=== PATIENT | female | born 1995 | race Caucasian/White ===

== ENCOUNTER 2016-09-08 16:22 | Emergency (ER) | payer OTHER ==
[2016-09-08 17:53] VITALS: BP 103/64
--- NOTE | 2016-09-08 19:33 | UC ---
Back Pain HPI - HPI Summary HPI Summary: The patient comes in today for: 1. Lower back pain: Onset: 2 days ago, with it being worse today. Palliative/provocative: Movement makes it worse. Any position "it hurts." Quality: Sharp and ache. Region: Middle of the lower back. Severity: 9/10 Time: Constant. Associated symptoms: She also complains of bilateral pain behind the eyes. Fevers: None. Dizziness: Spinning sensation (this AM) with nausea. This lasted all morning. But, it started again on her ride to see us. She complains of epistaxis the day of her flu vaccine (3 days ago). No bleeding since. Previous back problems: None. Home treatment: Ibuprofen 400 mg with one dose last night and one dose this AM. Dysuria: None Hematuria: None. Injury: None. Flu vaccine: 3 days ago. Numbness or weakness; None. Rhinitis: present, clear Cough: dry. upper tooth pain: None. * - History of Current Complaint Chief Complaint: UCGeneralIllness Stated Complaint: BACK PAIN, VOMITING Time Seen by Provider: 09/08/16 19:25 Hx Last Menstrual Period: 08/24/16 ?: No - Allergies/Home Medications Allergies/Adverse Reactions: Allergies Allergy/AdvReac Type Severity Reaction Status Date / Time No Known Allergies Allergy Verified 05/04/15 21:53 Home Medications: Home Medications Ibuprofen [Advil] 400 mg PO 09/08/16 [History] PMH/Surg Hx/FS Hx/Imm Hx Previously Healthy: No - "behavior issue" where she is "very hyper." Endocrine History Of: Denies: Diabetes, Thyroid Disease, Hyperthyroidism, Hypothyroidism, Dyslipidemia Cardiovascular History Of: Denies: Cardiac Disorders, Hypertension, Pacemaker/ICD, Myocardial Infarction , Congestive Heart Failure, Atrial Fibrillation, Deep Vein Thrombosis, Bleeding Disorders Respiratory History Of: Denies: COPD, Asthma, Bronchitis, Pneumonia, Pulmonary Embolism GI/ History Of: Denies: Gastroesophageal Reflux, Ulcer, Gastrointestinal Bleed, Gall Bladder Disease, Kidney Stones, Diverticulitis, Renal Disease, Urosepsis Neurological History Of: Denies: TIA, CVA, Dementia, Seizures, Migraine Psychological History Of: Denies: Anxiety, Depression, Bipolar Disorder, Schizophrenia, Post Traumatic Stress Disorder Cancer History Of: Denies: Lung Cancer, Colorectal Cancer, Breast Cancer, Prostate Cancer, Cervical Cancer Other History Of: Negative For: HIV, Hepatitis B, Hepatitis C, Anticoagulant Therapy - Surgical History Surgical History: Yes Surgery Procedure, Year, and Place: APPENDECTOMY 2009 - Family History Known Family History: Negative: Cardiac Disease, Hypertension, Diabetes - Social History Occupation: Student Alcohol Use: None Substance Use Type: None Smoking Status (MU): Never Smoked Tobacco Have You Smoked in the Last Year: No - Immunization History Most Recent Influenza Vaccination: 2012 Vaccination Up to Date: Yes Review of Systems Constitutional: Negative Skin: Negative Eyes: Negative ENT: Negative Respiratory: Cough - Dry, "hearty deep cough." Cardiovascular: Negative Gastrointestinal: Negative, Vomiting - She vomited two times today. The last one was about 3 hours ago. Genitourinary: Negative Musculoskeletal: Arthralgia, Myalgia Neurological: Headache All Other Systems Reviewed And Are Negative: Yes Physical Exam Triage Information Reviewed: Yes Appearance: Well-Appearing, No Pain Distress, Well-Nourished Vital Signs: Initial Vital Signs Temp 98.6 F 09/08/16 17:49 Pulse 111 09/08/16 17:49 Resp 18 09/08/16 17:49 BP 103/64 09/08/16 17:49 Pulse Ox 100 09/08/16 17:49 Vital Signs Reviewed: Yes Eyes: Positive: Conjunctiva Clear. Negative: Discharge ENT: Positive: Hearing grossly normal, Other: - She does not have tenderness of the frontal or maxillary sinuses, but positive pain with pressure to her ethmoid sinuses.. Negative: Pharyngeal erythema, Nasal congestion, Nasal drainage, TM bulging, TM dull, TM red, Tonsillar swelling, Tonsillar exudate Dental: Negative: Gross Decay/Caries @, Dental Fracture @ Neck: Positive: Supple, Nontender, No Lymphadenopathy. Negative: Nuchal Rigidity Respiratory: Positive: Chest non-tender, Lungs clear, No respiratory distress, No accessory muscle use. Negative: Crackles, Wheezing Cardiovascular: Positive: RRR, No Murmur Abdomen Description: Positive: No Organomegaly, Soft. Negative: Nontender - She has tenderness without rebound or percussion tenderness of the left lower quadrant., Distended, Guarding Musculoskeletal: Positive: Strength Intact, ROM Intact, No Edema, Other: - She has some tenderness to palpation of the lumbar spinous processes and the lower lumbar right and left paraspinous processes. NO CVA tenderness. Neurological: Positive: Alert, Muscle Tone Normal Psychological: Positive: Age Appropriate Behavior, Consolable Skin: Negative: rashes, breakdown Back Pain Course/Dx - Course Course Of Treatment: The patient was told that I don't know for sure what is causing her abdominal. pain. The patient was also told that there are many causes for abdominal pain--. some which are benign and some which are life- threatening. Furthermore, it was. mentioned that the life-threatening causes of abdominal pain can present with. minimal, atypical, or even no symptoms. Becasue of these facts and the fact. that we don't have here all the testing methods commonly used to assess abdominal. pain, and their timely results, my recommendation is for the patient to [facility] [place] [place]. However, she did not want to do this. She wants to go with an antibiotic and naproxen for. her headache and backache. - Differential Dx/Diagnosis Provider Diagnoses: Left lower quadrant abdominal pain. Headache. Sinusitis. Lower back ache. Vertigo Discharge - Discharge Plan Condition: Stable Disposition: HOME Patient Education Materials: Sinusitis (ED), Abdominal Pain (ED), Vertigo (ED) , Low Back Strain (ED) Referrals: Destiney Miramontes NP [Primary Care Provider] - As Soon As Possible (If you are not going to the ER, please reconsider if you get worse. Please see your primary care provider as soon as you can.)
[2016-09-08] MEDS ORDERED: Amoxicillin/Clavulanate TAB* 875 MG PO ONE (19:55)
[2016-09-08] MEDS ORDERED: Naproxen TAB* 250 MG PO ONE (19:55)
== END 2016-09-08 20:15 | disposition left against medical advice (07) ==
LOC: UCEAST 16:22
DX: R10.32 Left lower quadrant pain (principal); M54.5 Low back pain; J32.9 Chronic sinusitis, unspecified; R42 Dizziness and giddiness
CPT/HCPCS: 99212; A9270-GY; G0463

== ENCOUNTER 2017-04-23 21:14 | Emergency (ER) | payer OTHER ==
[2017-04-23 22:03] VITALS: BP 107/73
--- NOTE | 2017-04-23 23:12 | UC ---
Eye Complaint HPI - HPI Summary HPI Summary: RIGHT SUPERIOR EYELID, BUMP, HAVING DISCHARGE, FOR TWO DAYS. SINUS PRESSURE FOR A WEEK. USES CONTACT LENSES. NO FEVER. NO TRAUMA. NO CHANGES IN VISION. - History of Current Complaint Chief Complaint: UCEye Stated Complaint: BUMP UNDER EYELID Time Seen by Provider: 04/23/17 22:16 Hx Obtained From: Patient, Family/[employer] Hx Last Menstrual Period: April 15, 2017 Onset/Duration: Gradual Onset, Lasting Hours, Lasting Days Severity Initially: Moderate Severity Currently: Moderate Pain Intensity: 4 Pain Scale Used: 0-10 Numeric Location of Injury: Eye Lid (upper) Aggravating Factor(s): Nothing Alleviating Factor(s): Nothing Associated Signs And Symptoms: Positive: Drainage (Purulent), Swelling - Risk Factors Penetrating Injury Risk Factor: Negative Acute Glaucoma Risk Factors: Negative Optic Artery Occlusion Risk Factors: Negative - Allergies/Home Medications Allergies/Adverse Reactions: Allergies Allergy/AdvReac Type Severity Reaction Status Date / Time No Known Allergies Allergy Verified 05/04/15 21:53 PMH/Surg Hx/FS Hx/Imm Hx Previously Healthy: Yes Other History Of: Negative For: HIV, Hepatitis B, Hepatitis C, Anticoagulant Therapy - Surgical History Surgical History: Yes Surgery Procedure, Year, and Place: APPENDECTOMY 2009 - Family History Known Family History: Negative: Cardiac Disease, Hypertension, Diabetes - Social History Occupation: Student Lives: With Family Alcohol Use: None Substance Use Type: None Smoking Status (MU): Never Smoked Tobacco Have You Smoked in the Last Year: No - Immunization History Most Recent Influenza Vaccination: 2012 Vaccination Up to Date: Yes Review of Systems Constitutional: Negative Skin: Negative Eyes: Drainage, Other - SUPERIOR LID RIGHT EYE STYE ENT: Nasal Discharge, Sinus Congestion, Sinus Pain/Tenderness Respiratory: Negative Cardiovascular: Negative Gastrointestinal: Negative Genitourinary: Negative Motor: Negative Neurovascular: Negative Musculoskeletal: Negative Neurological: Negative Psychological: Negative Is Patient Immunocompromised?: No All Other Systems Reviewed And Are Negative: Yes Physical Exam Triage Information Reviewed: Yes Appearance: Well-Appearing, No Pain Distress, Well-Nourished Vital Signs: Initial Vital Signs Temp 97.7 F 04/23/17 21:52 Pulse 93 04/23/17 21:52 Resp 16 04/23/17 21:52 BP 107/73 04/23/17 21:52 Pulse Ox 100 04/23/17 21:52 Vital Signs Reviewed: Yes Eyes: Positive: Discharge, Other: - RIGHT SUPERIOR EYELID STYE ENT: Positive: Hearing grossly normal, Nasal congestion, TM bulging, TM dull Dental Exam: Normal Neck exam: Normal Neck: Positive: Supple, Nontender, No Lymphadenopathy Respiratory Exam: Normal Respiratory: Positive: Chest non-tender, Lungs clear, Normal breath sounds, No respiratory distress, No accessory muscle use Cardiovascular Exam: Normal Cardiovascular: Positive: RRR, No Murmur, Pulses Normal, Brisk Capillary Refill Abdominal Exam: Normal Musculoskeletal Exam: Normal Musculoskeletal: Positive: Strength Intact, ROM Intact Neurological Exam: Normal Psychological Exam: Normal Skin Exam: Normal Eye Complaint Course/Dx - Differential Dx/Diagnosis Differential Diagnosis/HQI/PQRI: Conjunctivitis Provider Diagnoses: RIGHT SUPERIOR EYELID STYE; SINUSITIS Discharge - Discharge Plan Condition: Stable Disposition: HOME Prescriptions: Amoxicillin/Clavulanate TAB* [Augmentin TAB 875*] 875 mg PO BID #20 tab Tobramycin 0.3% OPHTH.HANNAH* 1 drop RIGHT EYE Q4H #1 btl Patient Education Materials: Sinusitis (ED), Stye (ED), Conjunctivitis (ED) Referrals: Destiney Miramontes NP [Primary Care Provider] -
== END 2017-04-23 22:40 | disposition home or self-care (01) ==
LOC: UCEAST 21:14
DX: H00.011 Hordeolum externum right upper eyelid (principal); J32.9 Chronic sinusitis, unspecified
CPT/HCPCS: 99212; G0463

== ENCOUNTER 2017-09-30 20:11 | Emergency (ER) | payer OTHER ==
--- OUTSIDE RECORDS SUMMARY | 2017-09-30 20:22 | XMS REPORT ---
:1995 External Reference #:[id number] Author Organization [facility] Address [address] [place] [address] Phone [phone] Care Team Providers Name Role Phone Marge Burr M.D. Care Team Information Sap Basis Unavailable Marge Burr M.D. Primary Care Physician Unavailable Payers Type Date Identification Numbers Payment Provider Subscriber Medicaid Policy Number: [id number] [facility] Rohan Bacon PayID: [id number] [address] [address] [place] [address] Problems Date Description Provider Status Onset: 08/07/2017 Bipolar disorder Marge Burr M.D. 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 day Biotin Maximum Active Capsules 5000mcg qd Unknown Strength 000 Poly Hx 0.25mg 100cc Take 1 cc Jason S. Fluoride 997 - Every Day Nile, At Bedtime M.D. 017 Risperidone Hx Tablets 2mg 1 po bid F31.9 Unknown 000 - 018 Immunizations CPT Code Status Date Vaccine Lot # [id number] Given 02/11/1997 Hepatitis B Immunization, -20 Years 00271 Given 1996 Immunization Unspecified 62092 Given 1996 Hemopholus Influenza B Immunization 90770 Given 1996 DTP Immunization Vital Signs Date Vital Result Comment 09/12/2017 BP Systolic 112 mmHg BP Diastolic 72 mmHg Heart Rate 80 /min Body Temperature 97.7 F Respiratory Rate 18 /min Height 71.5 inches 5'11.50" Weight 198.00 lb BMI (Body Mass Index) 27.2 kg/m2 08/07/2017 BP Systolic 100 mmHg BP Diastolic 60 mmHg Heart Rate 80 /min Body Temperature 97.7 F Height 71.5 inches 5'11.50" Weight 214.00 lb BMI (Body Mass Index) 29.4 kg/m2 03/13/2017 BP Systolic 100 mmHg BP Diastolic 60 mmHg Heart Rate 84 /min Body Temperature 98.5 F Respiratory Rate 16 /min Height 71.5 inches 5'11.50" Weight 206.00 lb BMI (Body Mass Index) 28.3 kg/m2 06/14/1997 Body Temperature 96.7 F Height 30.50 inches 2'6.50" Weight 19.00 lb Weight Percentile 14th Results Test Date Test Result H/L Range Note Laboratory test finding 08/07/2017 Hemoglobin A1c (Fma) 5.0 % 4.1-5.7 Complete Blood Count 08/07/2017 WBC 5.6 x10^3/UL 3.6-9.6 RBC 4.59 x10^6/UL 3.90-5.70 HGB 13.7 g/dL 12.1-17.2 HCT 41 % 36-50 MCV 88.0 fL 82.2-97.4 MCH 29.8 pg 27.6-33.3 MCHC 33.8 g/dL 33.0-35.5 RDW 13.8 % High 11.6-13.7 PLT 320 x10^3/UL 150-400 MPV 7.9 fL 7.4-10.4 Gran # 3.4 x10^3/UL 1.5-7.2 Lymph# 1.9 x10^3/UL 0.7-4.9 Valencia# 0.3 x10^3/UL 0.1-0.9 Gran % 59.9 % 42.2-75.2 Lymph % 34.5 % 20.5-51.1 Valencia% 5.6 % 1.7-9.3 Comprehensive Metabolic Prof 08/07/2017 Sodium 138 mEq/L 134-149 Potassium 3.9 mEq/L 3.6-5.5 Chloride 103 mEq/L 94-112 Carbon Dioxide 26 mEq/L 21-32 Glucose 101 mg/dL 70-105 BUN 6 mg/dL 6-26 Creatinine 0.6 mg/dL 0.6-1.4 BUN/Creat Ratio 10.0 CALC 8.0-36.0 Calcium 9.1 mg/dL 8.6-10.2 Total Protein 6.6 g/dL 6.4-8.3 Albumin 4.6 g/dL 3.8-5.5 Globulin 2.0 g/dL 2.0-4.8 A/G Ratio 2.3 CALC 0.6-2.3 Alk. Phosphatase 131 U/L High 30-110 1 Alt (SGPT) 39 U/L High 7-35 2 Ast (Sgot) 20 U/L 5-34 Total Bilirubin 0.3 mg/dL 0.2-1.3 GFR Non- >60 ml/min/1.73m^ >=60 GFR >60 ml/min/1.73m^ >=60 Lipid Profile 08/07/2017 Cholesterol 156 mg/dL 120-200 Triglycerides 86 mg/dL 30-200 HDL Cholesterol 54 mg/dL 30-85 LDL (Calculated) 85 CALC 0-129 VLDL Cholesterol 17 mg/dL 0-50 HDL Risk Factor 2.9 CALC 0.0-4.4 Laboratory test finding 08/07/2017 TSH 5.06 mIU/L 0.50-6.00 1 RESULTS VERIFIED BY REPEAT ANALYSIS 2 RESULTS VERIFIED BY REPEAT ANALYSIS Procedures Description No Information Encounters Type Date Location Provider CPT E/M Dx Office Visit 08/07/2017 10:20a [facility] Marge Burr M.D. 82764 F31.9 Z79.899 Office Visit 03/13/2017 6:00p [place] [address] K60.2 Plan of Care 09/12/2017 - Sabina Peralta, [id number] Plantar wartComments:- You have been diagnosed with warts on your Right thumb and ball of your left foot- As we discussed, an [id number] treatment option would be beneficial to you, salicylic acid to remove the wartsat home, applying to the effective area before bed as described in the directions and then covering with duct tape while you sleep, removing in the morning. - Please contact me if this is ineffectual and we would refer you to a it consulting director or connie scratcher at that time.
[2017-09-30 20:23] VITALS: BP 124/76
--- NOTE | 2017-09-30 20:59 | UC ---
Abdominal Pain Female HPI - HPI Summary HPI Summary: 22 yo WF p/w pain in right nacho and upper umbilical area 2 hrs after eating [place] food at the mall associated with chillsx1 tonight. 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 Hx Last Menstrual Period: <1 WEEK AGO ?: No Onset/Duration: Lasting Hours, Still Present Severity Initially: Moderate Severity Currently: Moderate Pain Intensity: 7 Allergies/Adverse Reactions: Allergies Allergy/AdvReac Type Severity Reaction Status Date / Time No Known Allergies Allergy Verified 09/30/17 20:23 PMH/Surg Hx/FS Hx/Imm Hx Previously Healthy: Yes Other History Of: Negative For: HIV, Hepatitis B, Hepatitis C, Anticoagulant Therapy - Surgical History Surgical History: Yes Surgery Procedure, Year, and Place: APPENDECTOMY 2009 - Family History Known Family History: Negative: Cardiac Disease, Hypertension, Diabetes - Social History Alcohol Use: None Substance Use Type: None Smoking Status (MU): Never Smoked Tobacco Have You Smoked in the Last Year: No - Immunization History Most Recent Influenza Vaccination: 2012 Vaccination Up to Date: Yes Review of Systems Constitutional: Chills Skin: Negative Eyes: Negative ENT: Negative Respiratory: Negative Cardiovascular: Negative Gastrointestinal: Abdominal Pain, Diarrhea Genitourinary: Negative Motor: Negative Neurovascular: Negative Musculoskeletal: Negative Neurological: Negative Psychological: Negative All Other Systems Reviewed And Are Negative: Yes Physical Exam Triage Information Reviewed: Yes Vital Signs: Initial Vital Signs Temp 36.3 C 09/30/17 20:20 Pulse 110 09/30/17 20:20 Resp 16 09/30/17 20:20 BP 124/76 09/30/17 20:20 Pulse Ox 96 09/30/17 20:20 Eye Exam: Normal ENT Exam: Normal Dental Exam: Normal Neck exam: Normal Neck: Positive: 1 Respiratory Exam: Normal Cardiovascular Exam: Normal Abdomen Description: Positive: Soft, Distended, Other: - dull AND tympanitic over the left periumbilical region and throughout upper abdomen, BS WNL Bowel Sounds: Positive: Present Musculoskeletal Exam: Normal Neurological Exam: Normal Psychological Exam: Normal Skin Exam: Normal Abd Pain Female Course/Dx - Course Course Of Treatment: XR of abd flat and upright reveals fecal stasis and impaction throughout colon with associated bowel gas patterns in area of abdominal tenderness in right upper periumbilical region. Upon further questioning pt does c/o constipation and this is a chronic problem. Having eaten nicaraguan food tonight - carbs- is not helping the situation. Advised PO laxative OTC if sx continue to tomorrow - Differential Dx/Diagnosis Provider Diagnoses: Fecal stasis. Obstipation. indigestion Discharge - Discharge Plan Condition: Stable Disposition: HOME Patient Education Materials: Indigestion (ED), Gas and Bloating (ED) Referrals: Marge Burr MD [Primary Care Provider] - Additional Instructions: If stomach pains do not improve with bowel movement tomorrow, purchase laxatives over the counter to facilitate bowel movement and ease gas pains
--- NOTE | 2017-09-30 21:22 | RAD ---
INDICATION: Periumbilical pain COMPARISON: Lumbar spine September 13, 2011 TECHNIQUE: Erect and supine views of the abdomen are submitted. FINDINGS: Bones: There are no acute bony findings. There is an S type deformity Soft tissues: The soft tissues appear normal. The psoas margins are sharp. Bowel gas pattern: Normal Calcifications: There are no abnormal calcifications. Other: None IMPRESSION: NO ACUTE DIAGNOSTIC FINDINGS.
== END 2017-09-30 21:40 | disposition home or self-care (01) ==
LOC: UCEAST 20:14
DX: K59.00 Constipation, unspecified (principal); K30 Functional dyspepsia
CPT/HCPCS: 74019; 99211; G0463

== ENCOUNTER 2018-08-04 12:20 | Emergency (ER) | payer OTHER ==
--- OUTSIDE RECORDS SUMMARY | 2018-08-04 12:35 | XMS REPORT ---
:1995 External Reference #:[id number] Author Organization [facility] Address [address] [place] [address] Phone [phone] Care Team Providers Name Role Phone Marge Burr M.D. 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 Primary Care Physician Unavailable Payers Type Date Identification Numbers Payment Provider Subscriber Medicaid Policy Number: [id number] [facility] Rohan Bacon PayID: [id number] [address] [address] [place] [address] Problems Date Description Provider Status Onset: 08/07/2017 Bipolar disorder Marge Burr M.D. 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 night Biotin Maximum Active Capsules 5000mcg qd Unknown Strength 000 Risperidone Active Tablets 2mg 90tabs take one F31.9 Marge 000 tablet by Clinton, mouth M.D. every morning Risperidone Hx Tablets 3mg 60tabs 1 tab by F31.9 Marge 018 - mouth Clinton, twice a M.D. 018 day Poly Hx 0.25mg 100cc Take 1 cc Jason S. Fluoride 997 - Every Day Jovanni, AT Bedtime M.D. 017 Risperidone 0 Hx Tablets 2mg 1 po bid F31.Harshad Unknown 000 - 018 Immunizations CPT Code Status Date Vaccine Lot # [id number] Given 02/11/1997 Hepatitis B Immunization, -20 Years [address]1644 Given 1996 Immunization Unspecified 94729 Given 1996 Hemopholus Influenza B Immunization 91737 Given 1996 DTP Immunization Vital Signs Date Vital Result Comment 07/22/2018 BP Systolic 120 mmHg BP Diastolic 62 mmHg Heart Rate 76 /min Body Temperature 97.7 F Respiratory Rate 16 /min Height 71.5 inches 5'11.50" Weight 226.00 lb BMI (Body Mass Index) 31.1 kg/m2 06/11/2018 BP Systolic 110 mmHg BP Diastolic 60 mmHg Heart Rate 80 /min Body Temperature 98.8 F Respiratory Rate 16 /min Height 71.5 inches 5'11.50" Weight 222.00 lb BMI (Body Mass Index) 30.5 kg/m2 11/20/2017 BP Systolic 118 mmHg BP Diastolic 80 mmHg Heart Rate 92 /min Body Temperature 97.7 F Height 71.5 inches 5'11.50" Weight 222.00 lb BMI (Body Mass Index) 30.5 kg/m2 10/11/2017 BP Systolic 106 mmHg BP Diastolic 70 mmHg Heart Rate 90 /min Body Temperature 97.7 F Respiratory Rate 16 /min Height 71.5 inches 5'11.50" Weight 217.00 lb BMI (Body Mass Index) 29.8 kg/m2 09/12/2017 BP Systolic 112 mmHg BP Diastolic [...] Result H/L Range Note Laboratory test finding 07/22/2018 TSH <pending> 0.5-5.0 Free T4 <pending> 0.75-1.54 Laboratory test finding 07/22/2018 Hemoglobin A1c (Fma) <pending> % 4.1- 5.7 Laboratory test finding 08/07/2017 Hemoglobin A1c (Fma) [...] 3.4 x10^3/UL 1.5-7.2 Lymph# 1.9 x10^3/UL 0.7-4.9 Mccormick# 0.3 x10^3/UL 0.1-0.9 Gran % 59.9 % 42.2-75.2 Lymph % 34.5 % 20.5-51.1 Mccormick% 5.6 % 1.7-9.3 Comprehensive Metabolic Prof 08/07/2017 [...] Location Provider CPT E/M Dx Office Visit 06/11/2018 10:20a [facility] Marge Burr M.D. 50826 F31.9 E66.9 Office Visit 11/20/2017 8:40a [facility] Office Marge Burr M.D. 75045 F31.9 E66.9 B07.0 Office Visit 10/11/2017 4:30p [place] [address] F31.9 Office Visit 09/12/2017 1:00p [place] [address] B07.0 Office Visit 08/07/2017 10:20a [facility] Marge Burr M.D. 13414 F31.9 Z79.899 Office Visit 03/13/2017 6:00p [place] [address] K60.2 Plan of Care 07/22/2018 - Marge Burr M.D.F31.9 Bipolar disorder, unspecifiedComments: improved on sertraline, discussed exercise and maintaining healthy weight call kevin if symptoms worsenFollow up:3 -4 moE66.9 Obesity, unspecifiedComments: Counseled on heart healthy diet such as Mediterranean diet. Eat protein and vegetables first then carbohydrates last. Get at least 150 minutes of moderate aerobic activity or 75 minutes of vigorous aerobic activity a week, or a combination of moderate and vigorous activity. General goal of 30 minutes of physical activity a day.AllComments:~B_~U_Medication Management~b_~u_ Patient Understands medications she's taking? Yes No Are there Barriers to Adherence? Yes No Has the patient been asked about herbal supplements and therapies, and OTC meds? Yes No
[2018-08-04 13:21] VITALS: BP 105/65
--- NOTE | 2018-08-04 15:00 | UC ---
Ear Complaint HPI - HPI Summary HPI Summary: Patient is a 23-year-old female presenting to the ED with pain to the right upper jaw and ear. She states last evening she felt pain, redness and warmth into the right ear canal which has radiated to the R upper jaw. She endorses a 9/10 pain, constant throbbing in the right upper jaw with swelling. She states after taking 800 mg ibuprofen, the swelling reduced, however the pain remains. She denies any fevers, sweats, chills. She states it is difficult for her to open her jaw. Upon attempting to open the jaw, the bottom jaw shifts over to the left with a significant amount of pain. She also is hearing a "click." Denies any abnormal drainage from the ear, postnasal drip, dysphagia or odynophagia. - History of Current Complaint Chief Complaint: UCEar Stated Complaint: RIGHT EAR COMPLAINT Time Seen by Provider: 08/04/18 13:25 Hx Obtained From: Patient Hx Last Menstrual Period: 07/28/18 ?: No Onset/Duration: Sudden Onset Severity Initially: Mild Severity Currently: Mild Pain Intensity: 8 Pain Scale Used: 0-10 Numeric - Allergies/Home Medications Allergies/Adverse Reactions: Allergies Allergy/AdvReac Type Severity Reaction Status Date / Time No Known Allergies Allergy Verified 08/04/18 13:21 Home Medications: Home Medications Sertraline* [Zoloft*] 25 mg PO DAILY 08/04/18 [History Confirmed 08/04/18] PMH/Surg Hx/FS Hx/Imm Hx Previously Healthy: Yes Other History Of: Negative For: HIV, Hepatitis B, Hepatitis C, Anticoagulant Therapy - Surgical History Surgical History: Yes Surgery Procedure, Year, and Place: APPENDECTOMY 2009 - Family History Known Family History: Negative: Cardiac Disease, Hypertension, Diabetes - Social History Occupation: Employed Part-time Lives: With Family Alcohol Use: None Substance Use Type: None Smoking Status (MU): Never Smoked Tobacco Have You Smoked in the Last Year: No - Immunization History Most Recent Influenza Vaccination: 2012 Vaccination Up to Date: Yes Review of Systems All Other Systems Reviewed And Are Negative: Yes Constitutional: Positive: Negative Skin: Positive: Negative Eyes: Positive: Negative ENT: Positive: Other - ear pain/TMJ pain Respiratory: Positive: Negative Cardiovascular: Positive: Negative Motor: Positive: Negative Neurovascular: Positive: Negative Neurological: Positive: Negative Psychological: Positive: Negative Is Patient Immunocompromised?: No Physical Exam Triage Information Reviewed: Yes Appearance: Well-Appearing, Well-Nourished Vital Signs: Initial Vital Signs Temp 98.7 F 08/04/18 13:17 Pulse 111 08/04/18 13:17 Resp 18 08/04/18 13:17 BP 105/65 08/04/18 13:17 Pulse Ox 99 08/04/18 13:17 Vital Signs Reviewed: Yes Eye Exam: Normal Eyes: Positive: Conjunctiva Clear ENT: Positive: Other - right upper ear in the gisselle Dental: Positive: Other: - R TMJ tenderness Neck exam: Normal Neck: Positive: Supple, No Lymphadenopathy Respiratory Exam: Normal Respiratory: Positive: Chest non-tender, Lungs clear Musculoskeletal Exam: Normal Musculoskeletal: Positive: Strength Intact Neurological Exam: Normal Neurological: Positive: Alert Skin Exam: Normal Ear Complaint Course/Dx - Course Course Of Treatment: Physical examination, patients TMJ is prominent to the R side and upon opening jaw, the mandible shifts to the L significantly. There is erythema dn warmth to the R upper ear. Xray obtained of the mandible which shows no dislocation. The TMJ does appear to be intact with jaw in closed position. As patient also has develop redness and erythema to the inner ear ( gisselle of auricle/ cymba) with a palpable nodule. She states this area has somewhat dissipated and now the R upper jaw over TMJ is painful. Possible bacterial infection to the R ear has drained into the parotid area and causing swelling. She is given augmentin for infection. She will follow up with PCP for worsening changing. - Differential Dx/Diagnosis Differential Diagnosis/HQI/PQRI: TMJ Syndrome Provider Diagnosis: Mandibular swelling, Cellulitis of gisselle of right ear Discharge - Sign-Out/Discharge Documenting (check all that apply): Patient Departure All imaging exams completed and their final reports reviewed: Yes - Discharge Plan Condition: Stable Disposition: HOME Prescriptions: Amoxicillin/Clavulanate TAB* [Augmentin TAB 875*] 875 mg PO BID #10 tab Referrals: Marge Burr MD [Primary Care Provider] - Additional Instructions: Ibuprofen 600mg three times daily x 3-4 days for swelling Ice to the area may help Soft foods and do not attempt to open jaw wide Augmentin twice daily x 5 days, start now and next dose is before bed. Follow up with your PCP if symptoms persist - Billing Disposition and Condition Condition: STABLE Disposition: Home
== END 2018-08-04 15:05 | disposition home or self-care (01) ==
LOC: UCEAST 12:20
DX: R22.0 Localized swelling, mass and lump, head (principal); H60.11 Cellulitis of right external ear
CPT/HCPCS: 70110; 99212; G0463

== ENCOUNTER 2018-10-19 19:32 | Emergency (ER) | payer OTHER ==
[2018-10-19 19:39] VITALS: BP 121/73
--- NOTE | 2018-10-19 20:15 | UC ---
- HPI Summary HPI Summary: 23 y/o female presents to the urgent care c/o RT painful breast since last night C/O LUMP IN RIGHT BREAST; THIS WAS A LITTLE PAINFUL LAST NIGHT BUT MORE PAINFUL TODAY. - History of Current Complaint Hx Obtained From: Patient - Allergy/Home Medications Allergies/Adverse Reactions: Allergies Allergy/AdvReac Type Severity Reaction Status Date / Time No Known Allergies Allergy Verified 10/19/18 19:39 PMH/Surg Hx/FS Hx/Imm Hx Other History Of: Negative For: HIV, Hepatitis B, Hepatitis C, Anticoagulant Therapy - Surgical History Surgical History: Yes Surgery Procedure, Year, and Place: APPENDECTOMY 2009 - Family History Known Family History: Negative: Cardiac Disease, Hypertension, Diabetes - Social History Alcohol Use: None Substance Use Type: None Smoking Status (MU): Never Smoked Tobacco Have You Smoked in the Last Year: No - Immunization History Most Recent Influenza Vaccination: 2012 Vaccination Up to Date: Yes Physical Exam Vital Signs: Initial Vital Signs Temp 98 F 10/19/18 19:35 Pulse 107 10/19/18 19:35 Resp 16 10/19/18 19:35 BP 121/73 10/19/18 19:35 Pulse Ox 99 10/19/18 19:35 Breast Pain Course/Dx - Differential Diagnoses Differential Diagnosis/HQI/PQRI: Breast Abscess, Breast Mass, Cystic Myalgia, Fibrocystic Breast Disease, Mastitis - Diagnoses Provider Diagnoses: Pain of right breast, Fibrocystic breast disease Discharge - Sign-Out/Discharge Documenting (check all that apply): Patient Departure - D/c home All imaging exams completed and their final reports reviewed: No Studies - Discharge Plan Condition: Stable Disposition: HOME Patient Education Materials: Fibrocystic Breast Changes (ED), Breast Mass (ED) Referrals: Marge Burr MD [Primary Care Provider] - 3 Days Alison Aguero MD [Medical Doctor] - 3 Days Additional Instructions: 1- Your Breast painful cyst maybe due to Fibrocystic benign disease. However at this moment we don't have ultrasound available. Please f/u w/ your printing pressman or GYM DR Aguero for further evalaution and treatment on your B/L breast lumps. 2-Please take ibuprofen 600mg PO q6-8hrs prn as instructed after meals to alleviate pain and swelling. wear a well fitted bra. Increase fluid intake, eat well, rest and avoid strenuous exercise - Billing Disposition and Condition Condition: STABLE Disposition: Home
== END 2018-10-19 21:07 | disposition home or self-care (01) ==
LOC: UCEAST 19:32
DX: N64.4 Mastodynia (principal); N60.11 Diffuse cystic mastopathy of right breast
CPT/HCPCS: 99211; G0463

== ENCOUNTER 2019-09-03 20:26 | Emergency (ER) | payer OTHER ==
--- OUTSIDE RECORDS SUMMARY | 2019-09-03 20:30 | XMS REPORT | Continuity of Care Document ---
:1995 External Reference #:[id number] Author Name Marge Burr M.D. Address [address] [place] [address] Care Team Providers Name Role Phone Marge Burr M.D. 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 Onset: 08/07/2017 Social History Type Date Description Comments Sex Unknown Tobacco Use Start: Unknown Nonsmoker ETOH Use Denies alcohol use Recreational Drug Use Denies Drug Use Tobacco Use Start: Unknown Patient has never smoked Smoking Status Reviewed: 02/24/19 Patient has never smoked Exercise Type/Frequency Walks daily Allergies, Adverse Reactions, Alerts Description No Known Drug Allergies Medications Active Medications SIG Qnty Indications Ordering Provider Date Sertraline HCL 1 by mouth every 90tabs F31.9 Marge Burr, 06/11/2018 50mg day M.D. Tablets Risperidone 1 tab by mouth 90tabs F31.9 Marge Burr, 10/11/2017 3mg Tablets every night M.D. Risperidone take one tablet 90tabs F31.9 Marge Burr, 2mg Tablets by mouth every M.D. morning Biotin Maximum Unknown Strength [id number] Tablets History Medications Prednisone 40 mg x3 days 12tabs R42 Marge Burr, 03/21/2019 - 10mg Tablets M.D. 09/01/2019 Meclizine HCL 1 tab three 30tabs R42 aMrge Burr, 03/21/2019 - 12.5mg times a day as M.D. 09/01/2019 Tablets needed Immunizations CPT Code Status Date Vaccine Lot # [id number] Given 02/11/1997 Hepatitis B Immunization, [place]-19 Years 24774 Given 1996 Immunization Unspecified 42460 Given 1996 Hemopholus Influenza B Immunization 50098 Given 1996 DTP Immunization Vital Signs Date Vital Result Comment 09/01/2019 3:49pm BP Systolic 110 mmHg BP Diastolic 80 mmHg Heart Rate 76 /min Body Temperature 97.8 F Respiratory Rate 15 /min Weight 218.00 lb 03/21/2019 11:00am BP Systolic 100 mmHg BP Diastolic 70 mmHg Heart Rate 80 /min Body Temperature 97.5 F Respiratory Rate 20 /min Weight 223.00 lb Results Description No Information Available Procedures Description No Information Available Medical Devices Description No Information Available Encounters Type Date Location Provider Dx Diagnosis Office Visit 03/21/2019 Main Office Marge Burr M.D. R42 Dizziness and 11:00a giddiness F31.9 Bipolar disorder, unspecified Assessments Date Code Description Provider 09/01/2019 F31.9 Bipolar disorder, unspecified Marge Burr M.D. 09/01/2019 G47.00 Insomnia, unspecified Marge Burr M.D. 03/21/2019 R42 Dizziness and giddiness Marge Burr M.D. 03/21/2019 F31.9 Bipolar disorder, unspecified Marge Burr M.D. Plan of Treatment Future Appointment(s):02/29/2020 2:20 pm - Marge Burr M.D. at [id number] - Marge Burr M.D.F31.9 Bipolar disorder, unspecifiedComments:stable on regimen, call if symptoms [id number] Insomnia, unspecifiedComments: Consider cognitive behavioral therapy for improved sleep or sleep restriction therapy. There are many online and free programs that can help. Discussed sleep hygiene with dark curtains, no TV/phone/computer/work in bed, bedroom only for intimacy or sleep. Avoid napping during the day. Keep bedroom temperature cool ( 60-67 degrees). Consider adding 30 minutes of daily exercise. Eliminate "blue light"/use light filter, consider noise canceling headphones, white noise/sound machine or eye mask at night From [place] sleep hygiene tips http:// [email or web address].[facility] [email or web address]/healthy/getting/overcoming/tips [facility] free guided meditationhttps://www.[facility].org/[place]/body.cfm?id=22&iirf_redirect= 1AllComments:Medication Management Patient Understands medications she's taking ? Yes No Are there Barriers to Adherence? Yes No Has the patient been asked about herbal supplements and therapies, and OTC meds? Yes No Functional Status Description No Information Available Mental Status Description No Information Available Referrals Description No Information Available
[2019-09-03 21:43] VITALS: BP 115/66
--- NOTE | 2019-09-03 21:47 | UC ---
Skin Complaint HPI - HPI Summary HPI Summary: 24-year-old female presenting with complaints of "big red bug bites" on bilateral knees, posterior thighs, and elbows for the last 2 nights. Patient states the events occur only at night and then mostly go away during the day. States when they're there there very bright red, very itchy, and had a burning sensation. Patient states they are not there now. Notes concern for bedbugs but states she shares a bed with her mother and her mother does not have any symptoms. Denies any lip, tongue, or throat swelling. Denies difficulty breathing. Patient initially denied any new products, detergents, foods, or medications. Upon further questioning, patient notes that she did start using lavender essential oils spray on her bedding for the past 3 nights. - History of Current Complaint Stated Complaint: RASH Hx Obtained From: Patient Hx Last Menstrual Period: 1 MONTH AGO Pain Intensity: 5 Pain Scale Used: 0-10 Numeric - Allergy/Home Medications Allergies/Adverse Reactions: Allergies Allergy/AdvReac Type Severity Reaction Status Date / Time No Known Allergies Allergy Verified 09/03/19 21:37 Home Medications: Home Medications risperiDONE TAB* [Risperdal*] 2 mg PO BID 11/23/13 [History Confirmed 09/03/19] Sertraline* [Zoloft*] 25 mg PO DAILY 08/04/18 [History Confirmed 09/03/19] PMH/Surg Hx/FS Hx/Imm Hx Previously Healthy: Yes Other History Of: Negative For: HIV, Hepatitis B, Hepatitis C, Anticoagulant Therapy - Surgical History Surgical History: Yes Surgery Procedure, Year, and Place: APPENDECTOMY 2009 - Family History Known Family History: Negative: Cardiac Disease, Hypertension, Diabetes - Social History Alcohol Use: None Substance Use Type: None Smoking Status (MU): Never Smoked Tobacco Have You Smoked in the Last Year: No - Immunization History Most Recent Influenza Vaccination: 2012 Vaccination Up to Date: Yes Review of Systems All Other Systems Reviewed And Are Negative: Yes Constitutional: Positive: Negative Skin: Positive: Rash ENT: Positive: Negative Respiratory: Positive: Negative Cardiovascular: Positive: Negative Gastrointestinal: Positive: Negative Neurological/Mental Status: Positive: Negative Psychological: Positive: Negative Physical Exam - Summary Physical Exam Summary: Vital Signs Reviewed: Yes A+Ox3, no distress Eyes: Conjunctiva Clear ENT: Hearing grossly normal, no lip, tongue, or pharyngeal edema neck: supple Respiratory: Positive: No respiratory distress, No accessory muscle use Cardiovascular: skin color reflect adequate perfusion Musculoskeletal Exam: [place] x 4 without difficulty Neurological: Positive: Alert, ambulatory without difficulty Psychological: Positive: Normal Response To Family Skin: Positive: small pruritic ~1cm raised pink wheals noted on left knee and left posterior thigh Vital Signs: Initial Vital Signs Temp 98.5 F 09/03/19 21:38 Pulse 92 09/03/19 21:38 Resp 16 09/03/19 21:38 BP 115/66 09/03/19 21:38 Pulse Ox 98 09/03/19 21:38 Course/Dx - Course Course Of Treatment: Educated patient on urticaria and instructed to remove probable trigger of the Lavender essential oils in her bedding. Instructed to take Benadryl for itching and to follow up with PCP for persistent symptoms. Patient voiced understanding and agreed with treatment plan. - Diagnoses Provider Diagnosis: Urticaria Discharge ED - Sign-Out/Discharge Documenting (check all that apply): Patient Departure All imaging exams completed and their final reports reviewed: No Studies - Discharge Plan Condition: Stable Disposition: HOME Patient Education Materials: Urticaria (ED) Referrals: Marge Burr MD [Primary Care Provider] - If Needed Additional Instructions: Your hives could likely be caused by the essential oils you are using. It is recommended you discontinue use of them and wash your bedding. You may take benadryl to help relieve itching. Follow up with your primary care provider if your hives do not resolve within 7 days. Go to the emergency room with any lip, tongue, or throat swelling. - Billing Disposition and Condition Condition: STABLE Disposition: Home
== END 2019-09-03 22:00 | disposition home or self-care (01) ==
LOC: UCEAST 20:26
DX: L50.9 Urticaria, unspecified (principal)
CPT/HCPCS: 99211; G0463